=== PATIENT | male | born 1960 | race Caucasian/White ===

== ENCOUNTER → 2018-06-11 07:52 | Outpatient (CLI) | payer OTHER ==
[~2018-06-11] VITALS: Ht 165.1 cm; Wt 79.5 kg
--- NOTE | ~2018-06-11 | OP ---
PATIENT NAME: BELTRAN GOINS MEDICAL RECORD: [id number] :62 LOCATION:D.CAT ADMISSION DATE: SURGEON: BELTRAN REYES MD DATE OF OPERATION: 06/11/2018 DATE OF SERVICE: 06/11/2018 PROCEDURES: 1. PTCA stent of RCA. 2. PTCA stent of left circumflex. 3. Intravascular ultrasound RCA. 4. Intravascular ultrasound of left circumflex. 5. Left heart catheterization. 6. Selective coronary angiography. 7. Left ventriculogram. INDICATION: Angina and coronary artery disease. PROCEDURE IN DETAIL: After informed consent was obtained and after a detailed explanation of risks, benefits as well as alternative therapies, the patient elected to proceed with angiogram and angioplasty. The right femoral area was prepped and draped in normal sterile fashion. The right femoral artery was cannulated via modified Seldinger technique with placement of a 6-Panamanian sheath. All catheters exchanged through this sheath. FINDINGS: The left ventriculogram was performed in standard 30-degree PITTMAN view, reveals good cardiac wall motion throughout all segments. Overall ejection fraction estimated at 60%. SELECTIVE CORONARY ANGIOGRAPHY: 1. Left main is with no significant angiographic disease. 2. Left anterior descending has moderate irregularities, but no flow-limiting stenosis. 3. The left circumflex has greater than 80% stenosis in the mid vessel confirmed by intravascular ultrasound. 4. The right coronary has greater than 80% stenosis in the proximal vessel confirmed by intravascular ultrasound. PTCA STENT OF THE CIRCUMFLEX AND RCA: The circumflex was addressed with a 3.5 x 15 mm Integrity stent, the RCA with a 3.0 x 22 mm Integrity stent. Result was 0% residual stenosis. OVERALL IMPRESSION: Successful percutaneous transluminal coronary angioplasty stent of the left circumflex and right coronary artery, both going from greater than 80% initial stenosis to 0% residual. PROCEDURE: 1. Aortofemoral runoff. 2. Abdominal aortography. INDICATION: Leg pain compatible with claudication. PROCEDURE IN DETAIL: After informed consent was obtained and after detailed description of risks, benefits as well as alternative therapies, the patient elected to proceed with angiogram and aortofemoral runoff. The catheter was OPERATIVE REPORT [id number] BELTRAN GOINS advanced to the abdominal aorta pulled down for aortofemoral runoff. FINDINGS: The abdominal aorta has moderate irregularities, but no flow-limiting stenosis. No dissection or aneurysm formation. RIGHT LEG: A. Iliac: The common internal and external iliacs have mild irregularities, but no flow-limiting stenosis. B. Femoral system: The common superficial and deep femoral have mild irregularities, but no flow-limiting stenosis. C. Popliteal and infrapopliteal vessels have mild irregularities, but no flow-limiting stenosis. LEFT LEG: A. Iliac: The common internal and external iliacs have mild irregularities, but no flow-limiting stenosis. B. Femoral system: The common superficial and deep femoral have mild irregularities, but no flow-limiting stenosis. C. Popliteal and infrapopliteal vessels have mild irregularities, but no flow-limiting stenosis. OVERALL IMPRESSION: Wide patency of both legs with minimal peripheral vascular disease. Symptomatology is not secondary to arterial insufficiency. TRANSINT:[id number] Voice Confirmation ID: [id number] DOCUMENT ID: [id number] BELTRAN REYES MD at 0924 CC: [id number] DICTATION DATE: 06/11/18 1102 CAP INSPECTOR: 06/11/18 1129 DEP CLI 06/11/18 [facility] [address] [place] [address]
--- NOTE | ~2018-06-11 | HEMODYNAMI ---
PATIENT:BELTRAN GOINS MEDICAL RECORD: [id number] : 62 LOCATION:D.CAT ADMISSION DATE: 06/11/18 Generatedon:06/11/201810:59 Patient name: BELTRAN GOINS Patient #: [id number] SSN: D OB: 1960 Date of study: 06/11/2018 Page: Of Hemodynamic Procedure Report Patient Data Patient Demographics Procedure consent was obtained First Name: BELTRAN Gender: Male Last Name: BRISEIDA : 1960 Patient #: [id number] Age: 58 year(s) Race: Unknown Additional ID: [id number] Contact details [address]: [address] [place] [address] State: [place] City: [place] Zip code: [address] Past Medical History Allergies: No known allergies Admission Admission Data Admission Date: 06/11/2018 Admission Time: 7:52 Height (in.): 65.5 BSA: 1.87 (m2) Height (cm.): 166.37 BMI: 28.51 (kg/m2) Weight (lbs.): 174 Weight (kg.): 78.93 Procedure Procedure Types Cath Procedure Diagnostic Procedure C [facility] w/Coronaries FFR/IVUS Intra-Coronary IVUS Initial Intra-Coronary IVUS Additional PCI Procedure Coronary Stent Coronary Stent Initial x2 Peripheral Cath Diagnostic Procedure Industrial Relations Specialist Peripheral Procedures Wrpbr-Mmoshog-Lud-Off Procedure Description Procedure Date Procedure Date: 06/11/2018 Procedure Start Time: 10:24 Procedure End Time: 10:53 Procedure Staff Name Function Giacomo Jimenez RT Monitor Kenyatta Kumari RN Nurse Beltran Clinton MD Performing Physician Ana Laura Andres RT Scrub Trista Oconnell RN Nurse Procedure Data Cath Procedure Fluoroscopy Diagnostic fluoroscopy Total fluoroscopy Time: 4.7 time: 4.7 min min Diagnostic fluoroscopy Total fluoroscopy dose: 420 dose: 420 mGy mGy Contrast Material Contrast Material Type Amount (ml) Isovue 300 145 Entry Location Entry Primary Successful Side Size Upsize Upsize Entry Closure Succes sful Closure Location (Fr) 1 (Fr) 2 (Fr) Remarks Device Remarks Femoral Right 5 Fr 6 Fr Exoseal artery Short Estimated blood loss: 10 ml Diagnostic catheters Device Type Used For End Catheter Placement MULTIPACK Pigtail 5 Fr Procedure catheter MULTIPACK JL 4.0 5Fr Procedure catheter MULTIPACK 3DRC 5Fr Procedure catheter Procedure Complications No complications Procedure Medications Medication Administration Route Dosage Oxygen etCO2 Nasal cannula 2 l/min Lidocaine 2% added to field 20 Heparin Flush Bag added to field 2 bags (1000units/500ml NS) 0.9% NaCl I.V. 100 ml/hr Radial Cocktail I.A. 1 syringe (Verapomil 2mg/Nitro 400mcg/Heparin 1500units) Versed I.V. 2 mg Fentanyl I.V. 100 mcg Versed I.V. 2 mg Fentanyl I.V. 100 mcg Versed I.V. 2 mg Fentanyl I.V. 100 mcg Heparin Bolus I.V. 4000 units Integrilin (Bolus I.V. 7.3 ml 2mg/ml) Versed I.V. 2 mg Fentanyl I.V. 100 mcg Plavix P.O. 600 mg Hemodynamics Rest Heart Rate: 68 (bpm) Pressure Samples Time Site Value (mmHg) Purpose Heart Use Rate(bpm) 10:30 AO 87/66(74) Snapshot 67 Snapshots Pre Cath Intra NCS Post Cath Vital Signs Time Heart Resp SPO2 etCO2 NIBP (mmHg) Rhythm Pain Sedation Rate (ipm) (%) (mmHg) Status Level (bpm) 9:25:14 65 11 98 0 116/79(102) NSR 0 (11) 10(A) , No pain 9:29:22 66 19 99 35.3 128/80(94) NSR 0 (11) 10(A) , No pain 9:33:32 72 15 100 32.3 125/72(99) NSR 0 (11) 10(A) , No pain 9:37:42 70 19 100 33.1 116/80(106) NSR 0 (11) 10(A) , No pain 9:41:51 67 13 100 36.8 119/77(92) NSR 0 (11) 10(A) , No pain 9:46:01 76 19 98 23.3 121/79(93) NSR 0 (11) 10(A) , No pain 9:50:07 77 14 95 26.3 120/87(97) NSR 0 (11) 10(A) , No pain 9:54:21 62 15 95 33.1 100/63(82) NSR 0 (11) 10(A) , No pain 9:58:27 61 12 93 24 107/67(76) NSR 0 (11) 10(A) , No pain 10:02:33 74 15 94 42.1 99/70(79) NSR 0 (11) 10(A) , No pain 10:06:41 67 11 93 27 103/60(75) NSR 0 (11) 10(A) , No pain 10:10:44 80 17 94 41.4 114/74(85) NSR 0 (11) 10(A) , No pain 10:14:54 73 15 93 33.8 106/65(92) NSR 0 (11) 10(A) , No pain 10:19:02 73 16 93 27 101/68(86) NSR 0 (11) 10(A) , No pain 10:22:59 85 18 95 33.1 114/89(106) NSR 0 (11) 10(A) , No pain 10:27:16 60 15 95 38.3 112/48(67) NSR 0 (11) 10(A) , No pain 10:30:39 75 15 93 33.8 103/61(95) NSR 0 (11) 10(A) , No pain 10:34:46 71 12 93 10.5 106/62(92) NSR 0 (11) 9(A) , No pain 10:38:54 72 12 94 43.6 95/60(72) NSR 0 (11) 9(A) , No pain 10:43:00 86 13 93 0.7 92/65(87) NSR 0 (11) 9(A) , No pain 10:47:06 77 14 93 27 99/60(75) NSR 0 (11) 9(A) , No pain 10:51:09 93 16 95 28.6 100/71(81) NSR 0 (11) 10(A) , No pain Medications Time Medication Route Dose Verified Delivered Reason Not es Effectiveness by by 9:48:50 Oxygen etCO2 2 l/min Beltran You used for Nasal Mary Beth Kumari produce team lead cannula 9:54:28 Lidocaine 2% added 20ml Beltran Miller for local to vial Mary Beth Clinton MD anesthetic field 9:54:34 Heparin Flush added 2 bags Beltran Miller used for Bag to Mary Beth Clinton MD procedure (1000units/500ml field NS) 9:54:43 0.9% NaCl I.V. 100 Beltran Buffie Per physician ml/hr Mary Beth Kumari RN 9:54:54 Radial Cocktail I.A. 1 Beltran Miller for (Verapomil syringe Mary Beth Clinton MD vasodilation 2mg/Nitro 400mcg/Hepari 10:21:30 Versed I.V. 2 mg Beltran Buffie for sedation Mary Beht Kumari RN 10:21:36 Fentanyl I.V. 100 mcg Beltran Buffie for sedation Mary Beth Kumari RN 10:24:34 Versed I.V. 2 mg Beltran Buffie for sedation Mary Beth Kumari RN 10:24:38 Fentanyl I.V. 100 mcg Beltran Buffie for sedation Mary Beth Kumari RN 10:27:36 Versed I.V. 2 mg Beltran Buffie for sedation Mary Beth Kumari RN 10:27:40 Fentanyl I.V. 100 mcg Beltran Buffie for sedation Mary Beth Kumari RN 10:36:21 Heparin Bolus I.V. 4000 Beltran Buffie for delfina ified units Mary Beth Kumari RN anticoagulation with dr clinton 10:38:05 Integrilin I.V. 7.3 ml Beltran Buffie for Was felton (Bolus 2mg/ml) Mary Beth Kumari RN antiplatelet 2.7 ml therapy of vial 10:40:33 Versed I.V. 2 mg Beltran Buffie for sedation Mary Beth Kumari RN 10:40:38 Fentanyl I.V. 100 mcg Beltran Buffie for sedation Mary Beth Kumari RN 10:50:04 Plavix P.O. 600 mg Beltran Buffie for Mary Beth Kumari RN antiplatelet therapy Procedure Log Time Note 9:00:07 Ana Laura Andres RT(R) sent for patient. Start room use. 9:05:49 Signed procedure consent form obtained from patient. 9:05:54 Time tracking: Regular hours (M-F 7:00 - 5:00) 9:05:57 Plan of Care:Hemodynamics will remain stable., Cardiac rhythm will remain stable., Comfort level will be maintained., Respiratory function will remain adequate., Patient/ family verbilizes understanding of procedure., Procedure tolerated without complication., Recovers from procedure without complications.. 9:06:09 H&P Date Dictated: 05/19/2018 Within 30 days and on chart., H&P Addendum completed by physician on day of procedure. (MUST COMPLETE FOR ALL OUTPATIENTS). 9:06:16 Patient Height : 65.5 inches 9:06:20 Patient Weight : 174 lbs 9:16:11 Patient received from Pre/Post Procedure Room to CCL 3 Alert and oriented. Tansferred to table in Supine position. 9:16:12 Warm blankets applied, and asim hugger turned on for patient comfort. 9:16:13 ECG and BP/O2 sat monitors applied to patient. 9:16:13 Correct patient and procedure confirmed by team. 9:24:12 Vital chart was started 9:24:14 Baseline sample Acquired. 9:24:18 Rhythm: sinus rhythm 9:24:20 Full Disclosure recording started 9:24:21 Pre-op teaching completed and patient verbalized understanding. 9:24:21 Pre-procedure instructions explained to patient. 9:24:22 Family in patients room. 9:24:24 Patient NPO since Midnight. 9:24:28 Patient allergic to No known allergies 9:24:31 Is patient on blood thinner?No 9:35:11 Patient diabetic? No. 9:35:15 Previous problem with sedation/anesthesia? No ? 9:35:16 Snore? Yes 9:35:17 Sleep apnea? No 9:35:19 Deviated septum? No 9:35:20 Sticks out tongue? Yes 9:35:20 Opens mouth fully? Yes 9:35:23 Airway obstruction? No ? 9:35:28 Dentures? Yes IN 9:35:31 Pre procedure: right dorsailis pedis pulse 1+ Palpable, but thready & weak; easily obliterated 9:35:33 Modified Andi's test Ulnar < 7 seconds 9:35:35 Patient pain scale 0/10 ?. 9:35:44 IV patent on arrival in left forearm with 0.9% NaCl at KVO. 9:35:46 Lab results completed and on chart. 9:35:50 Right Radial & Right Groin area was prepped with chlora-prep and draped in sterile fashion 9:35:51 Alarms reviewed by R. N. 9:35:52 Sharps counted by scrub and verified by R.N. 9:41:16 Use device set Radial Dx or PCI 9:41:18 Tegaderm 4 x 4 (1626W) opened to sterile field. 9:41:19 ACIST Manifold (10116) opened to sterile field. 9:41:20 ACIST Hand Control (96970) opened to sterile field. 9:41:21 Bag Decanter (2002S) opened to sterile field. 9:41:21 Medline Cath Pack ([id number]) opened to sterile field. 9:41:21 ACIST Syringe (47699) opened to sterile field. 9:41:23 DIAGNOSTIC WIRE .035 260cm J wire (264614) opened to sterile field. 9:41:24 MBrace Wrist Support ([id number]) opened to sterile field. 9:48:50 Oxygen 2 l/min etCO2 Nasal cannula was administered by Kenyatta Kumari RN; used for procedure; 9:49:01 Zero performed for pressure channel P1 9:54:28 Lidocaine 2% 20ml vial added to field was administered by Beltran Clinton MD; for local anesthetic; 9:54:34 Heparin Flush Bag (1000units/500ml NS) 2 bags added to field was administered by Beltran Clinton MD; used for procedure; 9:54:43 0.9% NaCl 100 ml/hr I.V. was administered by Kenyatta Kumari RN; Per physician; 9:54:54 Radial Cocktail (Verapomil 2mg/Nitro 400mcg/Heparin 1500units) 1 syringe I.A. was administered by Beltran Clinton MD; for vasodilation; 10:15:30 Case delayed due to physician working in [facility]. 10:20:08 --------ALL STOP TIME OUT------ 10:20:09 Final Timeout: patient, procedure, and site verified with staff and physician. All members of the team are in agreement. 10:20:11 Right Radial & Right Groin site verified by team. 10:20:14 Physical assessment completed. ASA score P 2 - A patient with mild systemic disease as per Beltran Clinton MD. 10:20:19 Sedation plan: IV Moderate Sedation Medication:Versed, Fentanyl 10:21:30 Versed 2 mg I.V. was administered by Kenyatta Kumari RN; for sedation; 10::36 Fentanyl 100 mcg I.V. was administered by Kenyatta Kumari RN; for sedation; 10:24:34 Versed 2 mg I.V. was administered by Kenyatta uKmari RN; for sedation; 10::38 Fentanyl 100 mcg I.V. was administered by Kenyatta Kumari RN; for sedation; 10:24:54 Procedure started. 10::58 Local anesthetic to right femoral artery with Lidocaine 2% by Beltran Clinton MD.INITIAL ACCESS ONLY 10:26:25 A 5 Fr sheath was inserted into the Right Femoral artery 10:26:40 SHEATH Prelude 5Fr 0.035 (OHM-8S-11-035) opened to sterile field. 10:26:44 Use device set Multipack Set 10:26:47 DIAGNOSTIC Multipack 5Fr catheter set ([id number]) opened to sterile field. 10:27:01 A MULTIPACK Pigtail 5 Fr catheter was advanced over the wire and used for Procedure. 10:27:24 Abdominal Aortagram was performed. 10:27:26 Left leg runoff performed. 10:27:27 Right leg runoff performed. 10::30 Injector settings: Ml/sec: 10, Volume: 20, 10::36 Versed 2 mg I.V. was administered by Kenyatta Kumari RN; for sedation; 10::40 Fentanyl 100 mcg I.V. was administered by Kenyatta Kumari RN; for sedation; 10:27:42 Procedure type changed to Cath procedure, Diagnostic procedure, LHC, LHC w/Coronaries, FFR/IVUS, Intra-Coronary IVUS Initial, Intra-Coronary IVUS Additional, PCI procedure, Coronary Stent, Coronary Stent Initial x2, Peripheral Cath Diagnostic Procedure, Industrial Relations Specialist Peripheral Procedures, Ccbmu-Nlkcpxs-Trx-Off 10:29:37 LV angiography performed. 10::38 LV gram done using PITTMAN 10::45 EF : 55 % 10:30:25 Catheter removed. 10:30:31 A MULTIPACK JL 4.0 5Fr catheter was advanced over the wire and used for Procedure. 10:30:52 GUIDE 6FR XBLAD 3.5 catheter ([id number]) opened to sterile field. 10:31:12 LCA angiography performed. 10:31:15 Catheter removed. 10:31:20 A MULTIPACK 3DRC 5Fr catheter was advanced over the wire and used for Procedure. 10:33:28 RCA angiography performed. 10:33:29 Catheter removed. 10:33:33 Use device set MARY BETH PCI 10:34:08 INFLATOR Merit Bok (HD3294) opened to sterile field. 10:34:11 CHOICE PT Extra Support 182cm wire ([id number]) opened to sterile field. 10:34:13 SHEATH Prelude 6Fr 0.035 (CHK-6J-36-035) opened to sterile field. 10:34:14 Coalgate Hughes Eagleye IVUS Catheter (38781P) opened to sterile field. 10:34:23 Sheath upsized to a 6 Fr Short. 10:34:32 6 Fr XBLAD 3.5 guide catheter was inserted over the wire 10:34:36 CPTXS wire advanced. 10:34:51 Wire advanced across lesion. 10:35:01 IVUS catheter advanced over wire. 10:35:27 IVUS pass to Circ lesion performed. 10:35:31 IVUS catheter removed over wire. 10:36:21 Heparin Bolus 4000 units I.V. was administered by Kenyatta Kumari RN; for anticoagulation; verified with dr clinton 10:37:35 Inflate balloon Inflation number: 1 A INTEGRITY RX 3.5 x 15 stent ([id number]) was prepped and advanced across the Mid CX, then inflated to 15 REMBERTO for 0:10 (min:sec). 10:38:05 Integrilin (Bolus 2mg/ml) 7.3 ml I.V. was administered by Kenyatta Kumari RN; for antiplatelet therapy; Wasted 2.7 ml of vial 10:38:17 GUIDE 6FR HS I catheter (LA6HSI) opened to sterile field. 10:38:27 Stent catheter was removed intact over wire. 10:38:28 Wire removed. 10:38:29 Guide catheter removed. 10:38:35 6 Fr HS 1 guide catheter was inserted over the wire 10:40:27 Guide Catheter removed. pressure damping. 10:40:33 Versed 2 mg I.V. was administered by Kenyatta Kumari RN; for sedation; 10:40:38 Fentanyl 100 mcg I.V. was administered by Kenyatta Kumari RN; for sedation; 10:40:42 GUIDE 6FR HS I SH catheter (FU1ICRLY) opened to sterile field. 10:41:14 6 Fr HS 1 SH guide catheter was inserted over the wire 10:41:20 CPTXS wire advanced. 10:41:25 Wire advanced across lesion. 10:41:28 IVUS catheter advanced over wire. 10:43:36 IVUS pass to RCA lesion performed. 10:43:37 IVUS catheter removed over wire. 10:44:18 Place stent Inflation Number: 1 A INTEGRITY RX 3.0 x 22 stent ([id number]) was prepped and advanced across the Prox RCA. The stent was deployed at 15 REMBERTO for 0:10 (min:sec). 10:44:27 EXOSEAL 6Fr (EX600) opened to sterile field. 10:44:32 Stent catheter was removed intact over wire. 10:44:33 Wire removed. 10:44:34 Guide catheter removed. 10:44:42 Sheath removed intact; hemostasis achieved with Exoseal to the Right Femoral artery. 10:46:23 Procedure ended.(Physican Out) 10:50:04 Plavix 600 mg P.O. was administered by Kenyatta Kumari RN; for antiplatelet therapy; 10:50:58 Fluoroscopy time 04.70 minutes. 10:51:06 Fluoroscopy dose: 420 mGy 10:51:06 Flurop Dose total: 420 10:51:12 Contrast amount:Isovue 300 145ml. 10:51:13 Sharps counted by scrub and verified by R.N. 10:51:17 Insertion/operative site no bleeding no hematoma. 10:51:21 Post-op/insertion site Right Femoral artery dressed using a 4 x 4 and Tegaderm. 10:51:22 Post Procedure Pulses reassessed and unchanged 10:51:25 Post-procedure physical assessment completed. ASA score P 2 - A patient with mild systemic disease as per Beltran Clinton MD. 10:51:27 Post procedure rhythm: unchanged. 10:51:30 Estimated blood loss: 10 ml 10:51:37 Post procedure instruction explained to patient.Patient verbalizes understanding. 10:51:38 Patient needs reinforcement of post procedure teaching. 10:52:07 Procedure and supply charges have been captured, reviewed, submitted and are correct. 10:52:10 Procedure Complication : No complications 10:52:56 Vital chart was stopped 10:52:56 See physician's report for complete and final results. 10:53:09 Report given to Pre/Post Procedure Room. 10:53:12 Patient transfered to Pre/Post Procedure Room with Stretcher. 10:53:14 Procedure ended. 10:53:14 Full Disclosure recording stopped 10:54:07 End room use (Document Last) Intervention Summary Intervention Notes Time ActionType Lesion and Equipment Action# Pressure Duration Attributes Used 10:37:35 Inflate Mid CX INTEGRITY RX 1 15 00:10 balloon 3.5 x 15 stent ([id number]) 10:44:18 Place stent Prox RCA INTEGRITY RX 1 15 00:10 3.0 x 22 stent ([id number]) Device Usage Item Name Manufacture Quantity Catalog Number Hospital Part Current Minimal Lot# / Charge Number Stock Stock Serial# Code Tegaderm 4 x 4 3M 1 1626W [id number] 140951 574533 5 (1626W) ACIST Manifold Acist 1 70549 461944 499057 887830 5 (14622) Medical Systems Inc ACIST Hand Acist 1 18133 927742 354045 413088 5 Control (12627) [employer] Inc ACIST Syringe Acist 1 68292 821587 389188 818597 20 (70866) Medical Systems Inc Medline Cath Cardinal 1 [id number] 839614 00042 861310 5 Pack Health ([id number]) Bag Decanter Microtek 1 2001S 671773 33958 981542 5 (2001S) Medical Inc. DIAGNOSTIC WIRE St Colin 1 041042 457948 861255 893994 30 .035 260cm J wire (107202) MBrace Wrist Advanced 1 140-0250-00 819380 06166 161901 5 Support Vascular ([id number]) Dynamics SHEATH Prelude Merit 1 FRW-6T-58-035 661115 205434 076746 5 5Fr 0.035 Medical (MWG-8J-71-035) DIAGNOSTIC Cardinal 1 DI2832 662331 23374 201422 30 Multipack 5Fr Health catheter set (CV1384) MULTIPACK Cardinal 1 308679 5 Pigtail 5 Fr Health catheter MULTIPACK JL Cardinal 1 159187 5 4.0 5Fr Health catheter MULTIPACK 3DRC Cardinal 1 311347 5 5Fr catheter Health INFLATOR Merit Merit 1 AC0163 383317 084853 614581 15 BloomNation (ZJ7680) CHOICE PT Extra Crowell 1 [id number] 973834 017791 014154 5 Support 182cm Scientific wire ([id number]) SHEATH Prelude Merit 1 SEK-8Z-59-35 705893 7990805 737021 5 6Fr 0.035 Medical (FZF-7U-40-035) Coalgate Coalgate 1 16024O 420544 089347 587480 8 Hughes Eagleye IVUS Catheter (79923D) INTEGRITY RX Medtronic 1 [id number] 973029 742707 436638 5 [id number] 3.5 x 15 stent ([id number]) GUIDE 6FR HS I Medtronic 1 LA6HSI 933714 78217 428873 1 catheter (LA6HSI) GUIDE 6FR HS I Medtronic 1 [id number] 699427 54265 349288 1 SH catheter (SA9CQCLE) INTEGRITY RX Medtronic 1 [id number] 263435 000568 349715 5 [id number] 3.0 x 22 stent ([id number]) EXOSEAL 6Fr Cardinal 1 EX600 210008 547315 258676 10 (EX600) Health GUIDE 6FR XBLAD Cardinal 1 [id number] 850350 517681 857646 10 3.5 catheter Health (98025374) Signature Audit [place] Stage Time Signature Unsigned Intra-Procedure 06/11/2018 Giacomo Jimenez RT(R) 10:55:03 AM RT(R) 06/11/2018 10:58:36 AM Intra-Procedure 06/11/2018 Giacomo Jimenez 10:59:44 AM RT(R) Signatures Monitor : Giacomo Jimenez RT Signature : Date : Time : [facility] [address] [facility] [place] [address]
[~2018-06-11 07:52] MED LIST: LISINOPRIL10 MG PO; OMEPRAZOLE20 M1 PO; PLAVIX75 MG PO; PRAVACHOL40 MG PO; TOPROL XL25 MG PO; ZETIA10 MG PO
[2018-06-11 08:29] VITALS: BP 130/74; Ht 165.1 cm; Wt 79.5 kg
[2018-06-11 08:40] LABS: BASOPHILS 0.3 % (0-2); EOSINOPHILS 1.8 % (0-7); HEMATOCRIT 48.5 % (42.0-54.0); IMMATURE GRANULOCYTES 0.2 % (0-5); LYMPHOCYTES 26.5 % (15-50); MCH 32.6 pg (26.0-34.0); MCHC 35.1 g/dL (31.0-37.0); MCV 92.9 fL (80.0-100.0); MEAN PLATELET VOLUME 10.4 fL (7.4-10.4); NEUTROPHILS 60.2 % (40-80); PLATELET COUNT 233 10x3/uL (130-400); RBC 5.22 10x6/uL (4.20-6.10); RDW 13.2 % (11.5-14.5); WBC 6.5 10x3/uL (4.8-10.8)
[2018-06-11 08:46] LABS: CALCIUM 8.9 mg/dL (8.5-10.1); CARBON DIOXIDE 26.6 mmol/L (21.0-32.0); CHLORIDE - SERUM 104 mmol/L (98-107); CREATININE - SERUM 0.8 mg/dL (0.6-1.3); GLUCOSE 107 mg/dL (74-106); UREA NITROGEN 13 mg/dL (7-18); eGFR NON AFRICAN AMERICAN > 90 mL/min (90-120)
[2018-06-11 08:53] LABS: CALC OSMOLALITY 277 mosm/kg (275-300); POTASSIUM - SERUM 4.2 mmol/L (3.5-5.1); SODIUM 139 mmol/L (136-145)
== END | disposition home or self-care (01) ==
LOC: D.CATH 07:52
PROVIDERS: Internal Medicine Interventional Cardiology
DX: I25.110 Atherosclerotic heart disease of native coronary artery with unstable angina pectoris (principal); R94.39 Abnormal result of other cardiovascular function study

== ENCOUNTER 2018-06-13 08:49 | Emergency (ER) | payer OTHER ==
[~2018-06-13] VITALS: Ht 165.1 cm; Wt 79.5 kg
[2018-06-13 08:53] VITALS: Ht 165.1 cm; Wt 79.5 kg
[2018-06-13 09:09] LABS: BASOPHILS 0.2 % (0-2); EOSINOPHILS 1.5 % (0-7); HEMATOCRIT 48.7 % (42.0-54.0); HEMOGLOBIN 17.1 g/dL (13.5-17.5); IMMATURE GRANULOCYTES 0.1 % (0-5); LYMPHOCYTES 21.5 % (15-50); MCH 32.7 pg (26.0-34.0); MCHC 35.1 g/dL (31.0-37.0); MCV 93.1 fL (80.0-100.0); MEAN PLATELET VOLUME 10.2 fL (7.4-10.4); MONOCYTES 9.3 % (2-11); NEUTROPHILS 67.4 % (40-80); PLATELET COUNT 220 10x3/uL (130-400); RBC 5.23 10x6/uL (4.20-6.10); RDW 13.1 % (11.5-14.5); WBC 8.9 10x3/uL (4.8-10.8)
[2018-06-13 09:20] LABS: ALKALINE PHOSPHATASE 71 U/L (46-116); ALT (SGPT) 36 U/L (10-68); BILIRUBIN - TOTAL 0.65 mg/dL (0.2-1.3); CALC OSMOLALITY 278 mosm/kg (275-300); CALCIUM 9.2 mg/dL (8.5-10.1); CARBON DIOXIDE 28.3 mmol/L (21.0-32.0); CHLORIDE - SERUM 101 mmol/L (98-107); CREATININE - SERUM 0.9 mg/dL (0.6-1.3); GLUCOSE 122 mg/dL (74-106); POTASSIUM - SERUM 3.9 mmol/L (3.5-5.1); PROTEIN - SERUM 8.3 g/dL (6.4-8.2); SODIUM 139 mmol/L (136-145); UREA NITROGEN 12 mg/dL (7-18); eGFR NON AFRICAN AMERICAN > 90 mL/min (90-120)
[2018-06-13 09:25] LABS: APTT 31.3 SECONDS (22.8-39.4); INR 0.96 (0.85-1.17); PROTIME 12.4 SECONDS (11.6-15.0)
[2018-06-13 09:39] LABS: CKMB 1.4 U/L (0.0-3.6); CREATINE KINASE 89 UL (21-232); MAGNESIUM - SERUM 2.3 mg/dL (1.8-2.4)
[2018-06-13 09:45] LABS: TROPONIN-I < 0.017 ng/mL (0.000-0.060)
[2018-06-13 10:42] VITALS: BP 115/69
== END 2018-06-13 10:43 | disposition home or self-care (01) ==
LOC: D.ER 08:49
PROVIDERS: Emergency Medicine
DX: R07.9 Chest pain, unspecified (principal); I25.10 Atherosclerotic heart disease of native coronary artery without angina pectoris; I10 Essential (primary) hypertension; K21.9 Gastro-esophageal reflux disease without esophagitis; Z85.828 Personal history of other malignant neoplasm of skin; Z79.01 Long term (current) use of anticoagulants

== ENCOUNTER 2018-12-15 08:14 | Outpatient (CLI) | payer OTHER ==
[~2018-12-15] VITALS: Ht 165.1 cm; Wt 80.0 kg
--- NOTE | ~2018-12-15 | HEMODYNAMI ---
PATIENT:BELTRAN GOINS MEDICAL RECORD: [id number] : 62 [id number] ADMISSION DATE: 12/15/18 Generatedon:12/15/201810:54 Patient name: BELTRAN GOINS Patient #: [id number] SSN: D OB: 1960 Date of study: 12/15/2018 Page: Of Hemodynamic Procedure Report Patient Data Patient Demographics Procedure consent was obtained First Name: BELTRAN Gender: Male Last Name: BRISEIDA : 1960 Patient #: [id number] Age: 58 year(s) Race: Unknown Additional ID: [id number] Contact details [address]: [address] [place] [address] State: [place] City: [place] Zip code: [address] Past Medical History Allergies: No known allergies Admission Admission Data Admission Date: 12/15/2018 Admission Time: 8:14 Admit Source: Other Weight (lbs.): 176.37 Weight (kg.): 80 Lab Results Lab Result Date: 12/15/2018 Lab Result Time: 0:00 Biochemistry Name Units Result Min Max BUN mg/dl 19 --(----)*- 7 18 Creatinine mg/dl 0.8 --(-*--)-- 0.6 1.3 CBC Name Units Result Min Max Hemoglobin g/dl 15.4 --(-*--)-- 13.5 17.5 Procedure Procedure Types Cath Procedure Diagnostic Procedure [facility] w/Coronaries FFR/IVUS Intra-Coronary IVUS Initial Sedation Charges Moderate Sedation up to 15 minutes PCI Procedure Coronary Stent Coronary Stent Initial Procedure Description Procedure Date Procedure Date: 12/15/2018 Procedure Start Time: 10:30 Procedure End Time: 10:48 Procedure Staff Name Function Beltran Clinton MD Performing Physician Bekah Echols RT Monitor Kenyatta Kumari RN Nurse Giacomo Jimenez RT Scrub Procedure Data Cath Procedure Fluoroscopy Diagnostic fluoroscopy Total fluoroscopy Time: 3.2 time: 3.2 min min Diagnostic fluoroscopy Total fluoroscopy dose: 245 dose: 245 mGy mGy Contrast Material Contrast Material Type Amount (ml) Isovue 300 77 Entry Location Entry Primary Successful Side Size Upsize Upsize Entry Closure Mayen ccessful Closure Location (Fr) 1 (Fr) 2 (Fr) Remarks Device Remarks Radial Right 6 Fr Mechanical artery Short Compression Estimated blood loss: 5 ml Diagnostic catheters Device Type Used For End Catheter Placement DIAGNOSTIC Marcy 110cm 5 Multi-vessel Fr catheter ([id number]) Angiography Procedure Complications No complications Procedure Medications Medication Administration Route Dosage Oxygen etCO2 Nasal cannula 2 l/min Lidocaine 2% added to field 20 Heparin Flush Bag added to field 2 bags (1000units/500ml NS) 0.9% NaCl I.V. 100 ml/hr Versed I.V. 2 mg Fentanyl I.V. 100 mcg Versed I.V. 2 mg Versed I.V. 2 mg Fentanyl I.V. 100 mcg Radial Cocktail I.A. 1 syringe (Verapomil 2mg/Nitro 400mcg/Heparin 1500units) Versed I.V. 2 mg Fentanyl I.V. 100 mcg Heparin Bolus 4000 units Integrilin (Bolus I.V. 7.3 ml 2mg/ml) Hemodynamics Rest HGB: 15.4 (g/dl) Heart Rate: 67 (bpm) Pressure Samples Time Site Value (mmHg) Purpose Heart Use Rate(bpm) 10:37 LV 56/30,13 Snapshot 156 Snapshots Pre Cath Intra NCS Post Cath Vital Signs Time Heart Resp SPO2 etCO2 NIBP (mmHg) Rhythm Pain Sedation Rate (ipm) (%) (mmHg) Status Level (bpm) 10:21:25 63 19 99 0 127/87(103) NSR 0 (11) 10(A) , No pain 10:25:31 62 18 99 21.7 134/83(98) NSR 0 (11) 10(A) , No pain 10:29:36 69 26 100 35.1 123/87(98) NSR 0 (11) 10(A) , No pain 10:33:43 67 17 99 36.6 122/82(93) NSR 0 (11) 10(A) , No pain 10:37:52 68 16 97 36.6 111/74(99) NSR 0 (11) 10(A) , No pain 10:41:58 70 16 95 38.9 110/72(100) NSR 0 (11) 10(A) , No pain 10:46:06 74 17 96 35.1 109/62(76) NSR 0 (11) 10(A) , No pain Medications Time Medication Route Dose Verified Delivered Reason Notes Effectiveness by by 10:23:26 Lidocaine 2% added 20ml Beltran Miller for local to vial Mary Beth Clinton MD anesthetic field 10:23:26 Oxygen etCO2 2 l/min Beltran You used for Nasal Mary Beth Kumari RN procedure cannula 10:23:35 Heparin Flush added 2 bags Beltran Miller used for Bag to Mary Beth Clinton MD procedure (1000units/500ml field NS) 10:23:51 0.9% NaCl I.V. 100 Beltran You used for ml/hr Mary Beth Kumari RN procedure 10:27:53 Versed I.V. 2 mg Beltran You for sedation Mary Beth Kumari RN 10:27:58 Fentanyl I.V. 100 mcg Beltran You for sedation Mary Beth Kumari RN 10:32:28 Versed I.V. 2 mg Beltran You for sedation Mary Beth Kumari RN 10:34:36 Fentanyl I.V. 100 mcg Beltran You for sedation Mary Beth Kumari RN 10:35:33 Versed I.V. 2 mg Beltran You for sedation Mary Beth Kumari RN 10:36:05 Radial Cocktail I.A. 1 Beltran Miller for (Verapomil syringe Mary Beth Clinton MD vasodilation 2mg/Nitro 400mcg/Heparin 1500units) 10:41:38 Versed I.V. 2 mg Beltran Miller for sedation Mary Beth Clinton MD 10:41:46 Fentanyl I.V. 100 mcg Beltran Miller for sedation Mary Beth Clinton MD 10:44:18 Heparin Bolus 4000 Beltran You verifi ed units Mary Beth Kumari RN with dr clinton 10:47:36 Integrilin I.V. 7.3 ml Beltran You for wasted (Bolus 2mg/ml) Mary Beth Kumari RN antiplatelet 2.7 ml therapy of vial. Procedure Log Time Note 9:58:37 Patient Weight : 176.37 lbs 9:59:28 Lab Result : Hemoglobin 15.4 g/dl 9:59:28 Lab Result : Creatinine 0.8 mg/dl 9:59:28 Lab Result : BUN 19 mg/dl 10:00:25 Kenyatta Kumari RN sent for patient. Start room use. 10:00:27 Time tracking: Regular hours (M-F 7:00 - 5:00) 10:00:32 Plan of Care:Hemodynamics will remain stable., Cardiac rhythm will remain stable., Comfort level will be maintained., Respiratory function will remain adequate., Patient/ family verbilizes understanding of procedure., Procedure tolerated without complication., Recovers from procedure without complications.. 10:00:57 H&P Date Dictated: 12/15/2018 Within 30 days and on chart.. 10:13:28 Patient received from ED to CCL 3 Alert and oriented. Tansferred to table in Supine position. 10:13:29 Warm blankets applied, and asim hugger turned on for patient comfort. 10:13:30 Correct patient and procedure confirmed by team. 10:13:31 ECG and BP/O2 sat monitors applied to patient. 10:13:33 Signed procedure consent form obtained from patient. 10:20:15 Vital chart was started 10:20:18 Baseline sample Acquired. 10:20:21 Rhythm: sinus rhythm 10:20:22 Full Disclosure recording started 10:20:24 Pre-procedure instructions explained to patient. 10:20:24 Pre-op teaching completed and patient verbalized understanding. 10:20:25 Family in waiting room. 10:20:26 Patient NPO since Midnight. 10:20:28 Is the patient allergic to Iodine/contrast media? No. 10:20:29 Was the patient premedicated? No 10:20:31 Is patient on blood thinner?Yes 10:20:34 ACC The patient was administered the following blood thiners within the last 24 hours: ACCPlavix 10:20:39 Patient diabetic? No. 10:20:41 Previous problem with sedation/anesthesia? No ? 10:20:43 Snore? Yes 10:20:44 Sleep apnea? No 10:20:45 Deviated septum? No 10:20:45 Opens mouth fully? Yes 10:20:46 Sticks out tongue? Yes 10:20:49 Airway obstruction? No ? 10:20:54 Dentures? Yes IN TIGHT 10:20:58 Pre procedure: right dorsailis pedis pulse 2+ Normal; easily identifiable; not easily obliterated 10:21:01 Pre procedure: left dorsailis pedis pulse 2+ Normal; easily identifiable; not easily obliterated 10:21:03 Patient pain scale 0/10 ?. 10:21:10 IV patent on arrival in left forearm with 0.9% NaCl at [facility]. 10:21:12 Lab results completed and on chart. 10:21:15 Right Radial & Right Groin area was prepped with chlora-prep and draped in sterile fashion 10::16 Alarms reviewed by R. N. 10::17 Sharps counted by scrub and verified by R.N. 10:: Lidocaine 2% 20ml vial added to field was administered by Beltran Clinton MD; for local anesthetic; :: Oxygen 2 l/min etCO2 Nasal cannula was administered by Kenyatta Kumari RN; used for procedure; ::35 Heparin Flush Bag (1000units/500ml NS) 2 bags added to field was administered by Beltran Clinton MD; used for procedure; ::51 0.9% NaCl 100 ml/hr I.V. was administered by Kenyatta Kumari RN; used for procedure; ::51 Admit Source: Other 10::02 Physician arrived 10::02 --------ALL STOP TIME OUT------ 10::03 Final Timeout: patient, procedure, and site verified with staff and physician. All members of the team are in agreement. 10:26:04 Right Radial & Right Groin site verified by team. 10::08 Maximum allowable Isovue 300 dose 300ml. Physician notified. (300ml for normal creatinines. For patients with creatinine of 1.7 or higher multiply weight(kg) x 5 divided by creatinine.) 10:26:12 Fire Safety Assessment: A--An alcohol-based skin anteseptic being used preoperatively., C--Open oxygen or nitrous oxide is being used., D--An ESU, laser, or fiber-optic light is being used. 10:26:15 Physical assessment completed. ASA score P 2 - A patient with mild systemic disease as per Beltran Clinton MD. 10::18 Sedation plan: IV Moderate Sedation Medication:Versed, Fentanyl 10::37 Use device set Radial Dx or PCI 10:26:38 ACIST Syringe (07614) opened to sterile field. 10:26:38 Medline Cath Pack ([id number]) opened to sterile field. 10:26:39 Bag Decanter (2002) opened to sterile field. 10:26:39 DIAGNOSTIC WIRE .035 260cm J wire (465400) opened to sterile field. 10:26:39 ACIST Hand Control (89188) opened to sterile field. 10:26:40 ACIST Manifold (69628) opened to sterile field. 10:26:40 Tegaderm 4 x 4 (1626W) opened to sterile field. 10:26:41 MBrace Wrist Support ([id number]) opened to sterile field. 10:26:44 SHEATH 6FR Slender (64-8879) opened to sterile field. 10:27:53 Versed 2 mg I.V. was administered by Kenyatta Kumari RN; for sedation; 10:27:58 Fentanyl 100 mcg I.V. was administered by Kenyatta Kumari RN; for sedation; 10:30:44 Procedure started. 10:30:51 Local anesthetic to right radial artery with Lidocaine 2% by Beltran Clinton MD.INITIAL ACCESS ONLY 10:32:28 Versed 2 mg I.V. was administered by Kenyatta Kumari RN; for sedation; 10:34:36 Fentanyl 100 mcg I.V. was administered by Kenyatta Kumari RN; for sedation; 10:35:20 A 6 Fr Short sheath was inserted into the Right Radial artery 10:35:33 Versed 2 mg I.V. was administered by Kenyatta Kumari RN; for sedation; 10:35:37 A DIAGNOSTIC Marcy 110cm 5 Fr catheter ([id number]) was advanced over the wire and used for Multi-vessel Angiography. 10:36:05 Radial Cocktail (Verapomil 2mg/Nitro 400mcg/Heparin 1500units) 1 syringe I.A. was administered by Beltran Clinton MD; for vasodilation; 10:37:15 LV hemodynamics recorded. 10:37:16 LV gram done using PITTMAN 10:37:19 Injector settings: Ml/sec: 5, Volume: 15, 10:37:31 EF : 60 % 10:37:41 RCA angiography performed. 10:37:44 Injector settings: Ml/sec: 3, Volume: 6, 10:38:07 LCA angiography performed. 10:38:10 Injector settings: Ml/sec: 3, Volume: 6, 10:39:43 Catheter removed. 10:39:45 Proceeding to intervention. 10:41:38 Versed 2 mg I.V. was administered by Beltran Clinton MD; for sedation; 10:41:46 Fentanyl 100 mcg I.V. was administered by Beltran Clinton MD; for sedation; 10:41:59 [place] IVUS Catheter (10699H) opened to sterile field. 10:42:00 CHOICE PT Extra Support 182cm wire ([id number]) opened to sterile field. 10:42:01 INFLATOR Merit BasixCompak (VD0889) opened to sterile field. 10:42:13 GUIDE 5FR EBU 3.5 catheter ([id number]) opened to sterile field. 10:42:23 6 Fr EBU 3.5 guide catheter was inserted over the wire 10:42:27 CHOICE PT wire advanced. 10:42:29 Wire advanced across lesion. 10:42:35 IVUS catheter advanced over wire. 10:44:13 IVUS pass to Circ lesion performed. 10:44:18 Heparin Bolus 4000 units was administered by Kenyatta Kumari RN; ; verified with dr clinton 10:44:59 IVUS catheter removed over wire. 10:45:30 Place stent Inflation Number: 1 A RODERICK RX 3.0 x 15 stent ([id number]) was prepped and advanced across the Mid CX. The stent was deployed at 19 REMBERTO for 0:10 (min:sec). 10:46:23 Stent catheter was removed intact over wire. 10:46:24 Wire removed. 10:46:24 Guide catheter removed. 10:46:27 TR BAND Standard ([id number]) opened to sterile field. 10:46:35 Sheath removed intact; hemostasis achieved with Mechanical Compression to the Right Radial artery. 10:46:37 Procedure ended.(Physican Out) 10:46:54 Fluoroscopy time 03.20 minutes. 10:47:25 Fluoroscopy dose: 245 mGy 10:47:25 Flurop Dose total: 245 10:47:29 Contrast amount:Isovue 300 77ml. 10:47:30 Sharps counted by scrub and verified by R.N. 10:47:34 TR band inflated with 10cc of air. 10:47:36 Integrilin (Bolus 2mg/ml) 7.3 ml I.V. was administered by Kenyatta Kumari RN; for antiplatelet therapy; wasted 2.7 ml of vial. 10:47:36 Insertion/operative site no bleeding no hematoma. 10:47:41 Post right radial artery:stable 10:47:42 Post Procedure Pulses reassessed and unchanged 10:47:47 Post procedure rhythm: unchanged. 10:47:50 Estimated blood loss: 5 ml 10:47:52 Post procedure instruction explained to patient.Patient verbalizes understanding. 10:47:52 Patient needs reinforcement of post procedure teaching. 10:48:10 Procedure type changed to Cath procedure, Diagnostic procedure, LHC, LHC w/Coronaries, FFR/IVUS, Intra-Coronary IVUS Initial, Sedation Charges, Moderate Sedation up to 15 minutes, PCI procedure, Coronary Stent, Coronary Stent Initial 10:48:11 Procedure and supply charges have been captured, reviewed, submitted and are correct. 10:48:15 Procedure Complication : No complications 10:48:18 Vital chart was stopped 10:48:18 See physician's report for complete and final results. 10:48:24 Report given to Pre/Post Procedure Room. 10:48:27 Patient transfered to Pre/Post Procedure Room with Stretcher. 10:48:30 Procedure ended. 10:48:30 Full Disclosure recording stopped 10:48:38 ACC-PCI Only Patient was given prescriptions, or instructed by Beltran Clinton MD to start/continue the following medications upon discharge: Plavix 10:48:39 End room use (Document Last) Intervention Summary Intervention Notes Time ActionType Lesion and Equipment Used Action# Pressure Duration Attributes 10:45:30 Place stent Mid CX RODERICK RX 3.0 x 1 19 00:10 15 stent ([id number]) Device Usage Item Name Manufacture Quantity Catalog Number Hospital Part Current M inimal Lot# / Charge Number Stock Stock Serial# Code ACIST Syringe Acist 1 79913 909894 064327 525842 2 0 (88902) Medical Systems Inc Medline Cath Medline 1 [id number] 896789 49024 063730 5 Pack ([id number]) Bag Decanter Microtek 1 196295 64457 411890 5 () Medical Inc. DIAGNOSTIC [facility] [place] 1 697287 986001 000313 577991 3 0 WIRE .035 260cm J wire (451749) ACIST Hand Acist 1 68984 539851 602588 199101 5 Control Medical (19147) Systems Inc ACIST Manifold Acist 1 98541 118471 142999 334028 5 (46729) Medical Systems Inc Tegaderm 4 x 4 3M 1 1626W 225396 026373 534672 5 (1626W) MBrace Wrist Advanced 1 140-0250-00 162539 48243 336359 5 Support Vascular ([id number]) Dynamics SHEATH 6FR Terumo 1 [id number] 640059 892816 423496 5 Slender (80-1060) DIAGNOSTIC Terumo 1 40-1643 241995 702220 392336 5 Marcy 110cm 5 Fr catheter (032459) [place] 1 89025F 257752 843961 917836 8 [place] IVUS Catheter (18933T) CHOICE PT [place] 1 [id number] 273132 367772 786587 5 Extra Support Scientific 182cm wire ([id number]) INFLATOR Merit Merit 1 [id number] 444785 674296 271524 1 5 [facility] (RX8438) GUIDE 5FR EBU Medtronic 1 [id number] 909211 196209 506516 1 3.5 catheter ([id number]) RODERICK RX 3.0 x Medtronic 1 [id number] 249374 0200110 991754 5 [id number] 15 stent ([id number]) TR BAND Terumo 1 [id number] 552601 260973 153981 4 0 Standard ([id number]) Signature Audit [place]man Stage Time Signature Unsigned Intra-Procedure 12/15/2018 Bekah Echols 10:53:50 AM RT(R) Signatures Monitor : Bekah Echols RT Signature : Date : Time : [facility] [address] [place] [address]
[2018-12-15 08:17] VITALS: Ht 165.1 cm; Wt 80.0 kg
[2018-12-15] MEDS ORDERED: BAYER CHEWABLE81 MG PO (08:22)
[2018-12-15 08:56] LABS: BASOPHILS 0.2 % (0-2); EOSINOPHILS 1.3 % (0-7); HEMATOCRIT 44.2 % (42.0-54.0); HEMOGLOBIN 15.4 g/dL (13.5-17.5); IMMATURE GRANULOCYTES 0.2 % (0-5); LYMPHOCYTES 14.6 % (15-50); MCH 31.6 pg (26.0-34.0); MCHC 34.8 g/dL (31.0-37.0); MCV 90.8 fL (80.0-100.0); MEAN PLATELET VOLUME 10.3 fL (7.4-10.4); MONOCYTES 6.7 % (2-11); PLATELET COUNT 213 10x3/uL (130-400); RBC 4.87 10x6/uL (4.20-6.10); RDW 13.3 % (11.5-14.5)
[2018-12-15 09:08] LABS: ALBUMIN 3.6 g/dL (3.4-5.0); ALKALINE PHOSPHATASE 62 U/L (46-116); ALT (SGPT) 46 U/L (10-68); BILIRUBIN - TOTAL 0.52 mg/dL (0.2-1.3); CALC OSMOLALITY 276 mosm/kg (275-300); CALCIUM 8.4 mg/dL (8.5-10.1); CARBON DIOXIDE 24.9 mmol/L (21.0-32.0); CHLORIDE - SERUM 104 mmol/L (98-107); CREATININE - SERUM 0.8 mg/dL (0.6-1.3); GLUCOSE 122 mg/dL (74-106); PROTEIN - SERUM 7.4 g/dL (6.4-8.2); SODIUM 137 mmol/L (136-145); UREA NITROGEN 19 mg/dL (7-18); eGFR NON AFRICAN AMERICAN > 90 mL/min (90-120)
[2018-12-15 09:11] LABS: APTT 31.7 SECONDS (22.8-39.4); INR 1.01 (0.85-1.17); PROTIME 12.8 SECONDS (11.6-15.0)
[2018-12-15 09:20] LABS: CKMB 6.3 U/L (0.0-3.6); CREATINE KINASE 348 UL (21-232); MAGNESIUM - SERUM 2.2 mg/dL (1.8-2.4)
[2018-12-15 09:21] LABS: TROPONIN-I < 0.017 ng/mL (0.000-0.060)
--- NOTE | 2018-12-15 11:00 | NUR ---
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 PATIENT DENIED CHEST PAIN ON ARRIVAL. HR 67 BP 113/71
[2018-12-15 11:09] VITALS: BP 128/85
--- NOTE | 2018-12-15 11:15 | NUR ---
TR BAND TO R/WRIST IS CDI WITH NO BLEEDING OR HEMATOMA. CAP REFILL BRISK TO R/HAND INSTRUCTED PATIENT TO KEEP RUE STRAIGHT NO BENDING OR FLEXING OF WRIST. SANDWICH AND SODA TO BEDSIDE NAUSEA IS DENIED
[2018-12-15] MEDS ORDERED: PLAVIX75 MG PO (11:17)
--- NOTE | 2018-12-15 11:30 | NUR ---
DR REYES AT BEDSIDE NO NEW ORDERS. VSS AND TR BAND REAMINS CDI
--- NOTE | 2018-12-15 11:48 | NUR ---
PATIENT DENIED PAIN OR NEEDS. SITTING WITH HOB UP 30 TOLERATING SANDWICH AND SODA
--- NOTE | 2018-12-15 12:05 | NUR ---
TR BAND TO R/WRIST IS CDI WITH VSS PATIENT WATCHING TV IN ROOM CHEST PAIN IS DENIED
--- NOTE | 2018-12-15 12:27 | NUR ---
PATIENT IS RESTING QUIETLY WITH NO DISTRESS VSS AND TR BAND IS INTACT TO R/WRIST CDI
--- NOTE | 2018-12-15 13:25 | NUR ---
TR BAND REMAINS TO R/WRIST CDI NO BLEEDING NOTED. VSS AND CHEST PAIN IS DENIED
--- NOTE | 2018-12-15 13:54 | NUR ---
2 CC AIR REMOVED FROM TR BAND WITH NO BLEEDING OR HEMATOMA NOTED
--- NOTE | 2018-12-15 14:03 | NUR ---
2 CC AIR REMOVED FROM TR BAND WITH NO BLEEDING OR HEMATOMA
--- NOTE | 2018-12-15 14:15 | NUR ---
VERBAL AND WRITTEN DISCHARGE GONE OVER WITH PATIENT. 2 CC AIR REMOVED FROM TR BAND WITH NO BLEEDING NOTED
--- NOTE | 2018-12-15 14:17 | NUR ---
3 CC AIR REMOVED FROM TR BAND WITH NO BLEEDING NOTED
--- NOTE | 2018-12-15 14:28 | NUR ---
PIV REMOVED WITH DRESSING APPLIED. TR BAND TO R/WRIST IS CDI NO BLEEDING NOTED
--- NOTE | 2018-12-15 14:33 | NUR ---
2 CC AIR REMOVED FROM TR BAND WITH NO BLEEDING
--- NOTE | 2018-12-15 14:39 | OP ---
PATIENT NAME: BELTRAN GOINS MEDICAL RECORD: [id number] :62 LOCATION:[facility] ADMISSION DATE: SURGEON: BELTRAN REYES MD DATE OF OPERATION: 12/15/2018 PROCEDURES: 1. PTCA stent left circumflex. 2. Left heart catheterization. 3. Selective coronary angiography. 4. Left ventriculogram. 5. Intravascular ultrasound. INDICATION: Angina and coronary artery disease. PROCEDURE IN DETAIL: After informed consent was obtained and after detailed explanation of risks, benefits as well as alternative therapies, the patient elected to proceed with angiogram and angioplasty. The right radial area was prepped and draped in normal sterile fashion. Right radial artery was cannulated via modified Seldinger technique with placement of 6-Kinyarwanda sheath. All catheters exchanged through this sheath. FINDINGS: The left ventriculogram was performed in the standard 30-degree PITTMAN view reveals good cardiac wall motion throughout all segments. Overall ejection fraction estimated 60%. SELECTIVE CORONARY ANGIOGRAPHY: 1. Left main showed no significant angiographic disease. 2. Left anterior descending has moderate irregularities, but no flow-limiting stenosis. 3. The left circumflex has a previously placed stent with 77% in-stent restenosis in the proximal aspect of this. 4. Confirmed by intravascular ultrasound. 5. The right coronary has previously placed stent. This is widely patent with no significant restenosis. No disease elsewise throughout the RCA or its branches. PTCA STENT OF THE LEFT CIRCUMFLEX: The stent used 3.0 x 15 mm Derick taken to 19 atmospheres. Result was 0% residual stenosis. OVERALL IMPRESSION: Successful percutaneous transluminal coronary angioplasty stent of the left circumflex going from 77% in-stent restenosis to 0% residual. TRANSINT:[id number] Voice Confirmation ID: [id number] DOCUMENT ID: [id number] BELTRAN REYES MD at 1439 CC: [id number] DICTATION DATE: 12/15/18 1052 BANDER OPERATOR: 12/15/18 [id number] [place] [address]
--- NOTE | 2018-12-15 14:39 | CN ---
PATIENT NAME:BELTRAN GOINS MEDICAL RECORD: [id number] : 62 LOCATION:[facility] ADMIT DATE: ACCOUNT: [id number] CONSULTING PHYSICIAN: BELTRAN REYES MD REFERRING PHYSICIAN: PAUL BEAVER MD DATE OF CONSULTATION: 12/15/2018 DIAGNOSES: 1. Unstable angina. 2. Coronary artery disease. 3. Previous multivessel PTCA stent. 4. Leg pain compatible with claudication. 5. Hypertension. 6. Hyperlipidemia. HISTORY OF PRESENT ILLNESS: Mr. Goins presents with 2-3 weeks of increasing anginal chest discomfort. Last cardiac intervention was in May, it was RCA and left circumflex. PHYSICAL EXAMINATION: GENERAL APPEARANCE: Well-nourished, well-developed, appears stated age. Level of distress, comfortable. PSYCHIATRIC: Mental status, alert, normal affect. Orientation, oriented to time, place and person. EYES: Lids and conjunctiva, noninjected. No discharge, no pallor. ENT: Lips, teeth, gums, normal dentition. Oropharynx, no cyanosis, no pallor. NECK: Carotid arteries, bilateral normal upstroke, no bruits, no thrills. JUGULAR VEINS: No jugular venous pressure or distention. CERVICAL LYMPH NODES: Nontender, nonenlarged. THYROID: Not enlarged. Nontender. No nodules. LUNGS: Respiratory effort, unlabored. CHEST: Normal curvature. No thoracic deformity. No chest wall tenderness. Percussion, resonant. Auscultation, clear. No wheezes, no rales, no rhonchi. CARDIOVASCULAR: Precordial exam, nondisplaced. No heaves or pericardial thrills. Rate and rhythm, regular. Heart sounds, normal S1, normal S2. No S3, no gallop, no rub. Systolic murmur, not heard. Diastolic murmur, not heard. EXTREMITIES: No cyanosis, no edema. Peripheral pulses, full and equal in all extremities, except as noted. No bruits appreciated. ABDOMEN: Soft, nondistended. Normal aorta. No bruit. Nontender. No masses. Liver, nontender, no hepatomegaly. Spleen, nontender, no splenomegaly. MUSCULOSKELETAL: No joint tenderness. No joint swelling. No erythema. NEUROLOGICAL: Normal gait, normal strength, normal tone. SKIN: Warm and dry. OVERALL IMPRESSION: Anginal symptomatology with a past history of coronary artery disease and multivessel disease. We will proceed with coronary angiography. Further care depends upon the findings of the angiography. TRANSINT:[id number] Voice Confirmation ID: [id number] DOCUMENT ID: [id number] CONSULT REPORT [id number] BELTRAN GOINS, BELTRAN KAUFMAN at 1439 CC: [id number] DICTATION DATE: 12/15/18930 CORRECTIONAL CASEWORK SPECIALIST: 12/15/18 [address] [place] [address]
--- NOTE | 2018-12-15 14:41 | NUR ---
TR BAND REMOVED WITH DRESSING APPLIED. NO BLEEDING OR HEMATOMA PATIENT DENIED CHEST PAIN. LEFT VIA WC TO PARKING FOR TRANSPORT HOME NO DISTRESS
== END 2018-12-15 15:00 | disposition home or self-care (01) ==
LOC: D.CLR 08:14 → D.ER 08:14 → D.CLR 11:11 → EDSTATUS 11:14 → D.CLR 15:00
PROVIDERS: ATTEND Emergency Medicine
DX: I25.110 Atherosclerotic heart disease of native coronary artery with unstable angina pectoris (principal)

== ENCOUNTER 2019-06-06 17:49 | Inpatient (IN) | payer OTHER ==
[~2019-06-06] VITALS: Ht 165.1 cm; Wt 76.5 kg
--- NOTE | ~2019-06-06 | HEMODYNAMI ---
PATIENT:BELTRAN GOINS MEDICAL RECORD: [id number] : 62 LOCATION:[facility] D.2115 [facility]# [id number] ADMISSION DATE: 06/07/19 Generatedon:06/08/201916:00 Patient name: BELTRAN GOINS Patient #: [id number] SSN: [id number] : 1960 Date of study: 06/08/2019 Page: Of Hemodynamic Procedure Report Patient Data Patient Demographics Procedure consent was obtained First Name: BELTRAN Gender: Male Last Name: BRISEIDA : 1960 Patient #: [id number] Age: 59 year(s) Race: SSN: [id number] Additional ID: [id number] Contact details Address: [address] [place] [address] ROAD State: [place] City: [place] Zip code: [address] Past Medical History Allergies: No known allergies Admission Admission Data Admission Date: 06/07/2019 Admission Time: 18:46 Arrival Date: 06/08/2019 Arrival Time: 0:00 Admit Source: Other Insurance Payor: Private Room #: D.2115 health insurance [facility] #: [id number] Height (in.): 64.96 BSA: 1.84 (m2) Height (cm.): 165 BMI: 28.1 (kg/m2) Weight (lbs.): 168.65 Weight (kg.): 76.5 Lab Results Lab Result Date: 06/08/2019 Lab Result Time: 0:00 Biochemistry Name Units Result Min Max BUN mg/dl 13 --(--*-)-- 7 18 Creatinine mg/dl 0.8 --(-*--)-- 0.6 1.3 eGFR ml/min 90 --(*---)-- 90 120 NONAFRICAN CBC Name Units Result Min Max Hematocrit % 47.1 --(-*--)-- 42 54 Hemoglobin g/dl 15.8 --(--*-)-- 13.5 17.5 Procedure Procedure Types Cath Procedure Diagnostic Procedure LHC LHC w/Coronaries Procedure Description Procedure Date Procedure Date: 06/08/2019 Procedure Start Time: 15:43 Procedure End Time: 15:59 Procedure Staff Name Function Ana Laura Andres RT Monitor Delma Chance RT Monitor Giacomo Jimenez RT Scrub Jovita Dickinson RT Scrub Kenyatta Kumari RN Nurse Donavan Roth MD Performing Physician Procedure Data Cath Procedure Fluoroscopy Diagnostic fluoroscopy Total fluoroscopy Time: 1.1 time: 1.1 min min Diagnostic fluoroscopy Total fluoroscopy dose: 366 dose: 366 mGy mGy Contrast Material Contrast Material Type Amount (ml) Isovue 300 60 Entry Location Entry Primary Successful Side Size Upsize Upsize Entry Closure Succes sful Closure Location (Fr) 1 (Fr) 2 (Fr) Remarks Device Remarks Femoral Right 5 Fr Exoseal artery Estimated blood loss: 5 ml Diagnostic catheters Device Type Used For End Catheter Placement MULTIPACK JL 4.0 5Fr Procedure catheter MULTIPACK 3DRC 5Fr Procedure catheter MULTIPACK Pigtail 5 Fr Procedure catheter Procedure Complications No complications Procedure Medications Medication Administration Route Dosage Oxygen etCO2 Nasal cannula 2 l/min Lidocaine 2% added to field 20 Heparin Flush Bag added to field 2 bags (1000units/500ml NS) 0.9% NaCl I.V. 100 ml/hr Versed I.V. 2 mg Fentanyl I.V. 50 mcg Versed I.V. 2 mg Fentanyl I.V. 50 mcg Radial Cocktail added to field 1 syringe (Verapamil 2mg/Nitro 400mcg/Heparin 1500units) Versed I.V. 2 mg Hemodynamics Rest BSA: 1.84 (m2) HGB: 15.8 (g/dl) O2 Consumption: Estimated: 229.11 (ml/min) O2 Co nsumption indexed: Estimated:124.52 (ml/min/m) Heart Rate: 87 (bpm) Pressure Samples Time Site Value (mmHg) Purpose Heart Use Rate(bpm) 15:52 LV 93/4,4 Snapshot 101 15:53 AO 99/59(75) Pullback 90 15:53 LV 100/10,16 Pullback 90 Gradients Valve Time Site 1 Site 2 Mean SEP/DFP Peak To Heart Use (mmHg) (sec/min) Peak Rate (mmHg) (bpm) Aortic 15:53 LV AO 4 21 1 90 100/10,16 99/59(75) Calculations Valve P-P Mean Valve Index Valve Source Name Gradient Area Flow (cm2) Aortic 1 4 1 4 Snapshots Pre Cath Intra NCS Post Cath Vital Signs Time Heart Resp SPO2 etCO2 NIBP Rhythm Pain Sedation Rate (ipm) (%) (mmHg) (mmHg) Status Level (bpm) 15:27:44 83 20 99 0 122/83(98) NSR 0 (11) 10(A) , No pain 15:31:51 87 17 100 35.8 123/80(96) NSR 0 (11) 10(A) , No pain 15:36:01 87 11 100 35.1 111/77(88) NSR 0 (11) 10(A) , No pain 15:40:09 87 17 95 29.8 109/67(87) NSR 0 (11) 10(A) , No pain 15:44:17 82 12 93 36.6 97/61(87) NSR 0 (11) 9(A) , No pain 15:48:19 80 15 96 35.9 111/69(95) NSR 0 (11) 9(A) , No pain 15:52:27 80 13 93 36.6 106/67(83) NSR 0 (11) 10(A) , No pain 15:56:30 81 14 96 34.4 105/71(84) NSR 0 (11) 10(A) , No pain Medications Time Medication Route Dose Verified Delivered Reason Notes Effectiveness by by 15:39:09 Oxygen etCO2 2 l/min Donavan You used for Nasal St Erwin Kumari RN procedure cannula 15:39:16 Lidocaine 2% added 20ml Donavan Go for local to vial [facility] anesthetic field MD KAUFMAN 15:39:24 Heparin Flush added 2 bags Donavan Go used for Bag to [facility] procedure (1000units/500ml field MD KAUFMAN NS) 15:39:45 0.9% NaCl I.V. 100 Donavan You Per ml/hr St Erwin Kumari RN physician 15:39:53 Radial Cocktail added 1 Donavan Go for not (Verapamil to syringe [facility] vasodilation used, 2mg/Nitro field MD KAUFMAN femoral 400mcg/Heparin access 1500units) obtained 15:41:35 Versed I.V. 2 mg Donavan You for sedation St Erwin Kumari RN, MD 15:41:42 Fentanyl I.V. 50 mcg Donavan You for sedation St Erwin Kumari RN, MD 15:44:03 Versed I.V. 2 mg Donavan You for sedation St Erwin Kumari RN, MD 15:44:07 Fentanyl I.V. 50 mcg Donavan You for sedation St Erwin Kumari RN, MD 15:50:44 Versed I.V. 2 mg Donavan You for sedation St Erwin Kumari RN, MD Procedure Log Time Note 15:00:36 Informed consent obtained and on chart 15:04:41 Arrival Date: 06/08/2019 12:00:00 AM 15:04:50 Insurance Payor : Private health insurance 15:05:18 Patient Height : 64.96 inches 15:05:23 Patient Weight : 168.65 lbs 15:05:30 Admit Source: Other 15:08:32 Lab Result : eGFR NONAFRICAN 90 ml/min 15:08:32 Lab Result : Hemoglobin 15.8 g/dl 15:08:32 Lab Result : BUN 13 mg/dl 15:08:32 Lab Result : Creatinine 0.8 mg/dl 15:08:32 Lab Result : Hematocrit 47.1 % 15:08:42 Diagnostic Cath Status : Elective 15:10:07 Procedure Status Elective Heart Cath (OP). 15:10:10 Kenyatta Kumari RN sent for patient. Start room use. 15:10:15 Time tracking: Regular hours (M-F 7:00 - 5:00) 15:10:21 Plan of Care:Hemodynamics will remain stable., Cardiac rhythm will remain stable., Comfort level will be maintained., Respiratory function will remain adequate., Patient/ family verbilizes understanding of procedure., Procedure tolerated without complication., Recovers from procedure without complications.. 15:22:39 Patient received from Med II to CCL 1 Alert and oriented. Tansferred to table in Supine position. 15:22:40 Warm blankets applied, and asim hugger turned on for patient comfort. 15:22:41 Correct patient and procedure confirmed by team. 15:22:41 ECG and BP/O2 sat monitors applied to patient. 15:22:46 Vital chart was started 15:28:44 Patient allergic to No known allergies 15:28:52 Baseline sample Acquired. 15:28:55 Rhythm: sinus rhythm 15:28:57 Full Disclosure recording started 15:29:05 H&P Date Dictated: 06/08/2019 New H&P dictated by physician.. 15:29:07 Pre-procedure instructions explained to patient. 15:29:07 Pre-op teaching completed and patient verbalized understanding. 15:29:09 Family unavailable. 15:29:10 Patient NPO since Midnight. 15:30:52 Is the patient allergic to Iodine/contrast media? No. 15:30:57 Is patient on blood thinner?No 15:31:10 Patient diabetic? No. 15:31:21 Previous problem with sedation/anesthesia? No ? 15:31:22 Snore? Yes 15:31:25 Sleep apnea? No 15:31:27 Deviated septum? No 15:31:29 Opens mouth fully? Yes 15:31:30 Sticks out tongue? Yes 15:31:43 Airway obstruction? No ? 15:31:50 Dentures? No ? 15:31:55 Pre procedure: right dorsailis pedis pulse 2+ Normal; easily identifiable; not easily obliterated 15:32:00 Modified Andi's test Radial < 7 seconds 15:32:06 Patient pain scale 0/10 ?. 15:32:15 IV patent on arrival in left forearm with 0.9% NaCl at [facility]. 15:32:43 Right Radial & Right Groin area was prepped with chlora-prep and draped in sterile fashion 15:32:45 Alarms reviewed by R. N. 15:32:46 Sharps counted by scrub and verified by R.N. 15:33:07 Use device set Radial Dx or PCI 15:33:15 Medline Cath Pack ([id number]) opened to sterile field. 15:33:16 ACIST Syringe (61547) opened to sterile field. 15:33:17 Bag Decanter (2002S) opened to sterile field. 15:33:18 ACIST Hand Control (02673) opened to sterile field. 15:33:19 ACIST Manifold (33737) opened to sterile field. 15:33:26 MBrace Wrist Support ([id number]) opened to sterile field. 15:33:40 EMERALD Guide Wire (208-328) opened to sterile field. 15:33:41 SHEATH 6FR RAIN (4013114) opened to sterile field. 15:39:09 Oxygen 2 l/min etCO2 Nasal cannula was administered by Kenyatta Kumari RN; used for procedure; Verbal order read back and verified. 15:39:16 Lidocaine 2% 20ml vial added to field was administered by Donavan Roth MD; for local anesthetic; Verbal order read back and verified. 15:39:24 Heparin Flush Bag (1000units/500ml NS) 2 bags added to field was administered by Donavan Roth MD; used for procedure; Verbal order read back and verified. 15:39:45 0.9% NaCl 100 ml/hr I.V. was administered by Kenyatta Kumari RN; Per physician; Verbal order read back and verified. 15:39:53 Radial Cocktail (Verapamil 2mg/Nitro 400mcg/Heparin 1500units) 1 syringe added to field was administered by Donavan Roth MD; for vasodilation; not used, femoral access obtained Verbal order read back and verified. 15:40:32 --------ALL STOP TIME OUT------ 15:40:35 Final Timeout: patient, procedure, and site verified with staff and physician. All members of the team are in agreement. 15:41:35 Versed 2 mg I.V. was administered by Kenyatta Kumari RN; for sedation; Verbal order read back and verified. 15:41:42 Fentanyl 50 mcg I.V. was administered by Kenyatta Kumari RN; for sedation; Verbal order read back and verified. 15:42:18 Right Radial & Right Groin site verified by team. 15:42:21 Fire Safety Assessment: B--The operative or invasive procedure is being performed above the xiphoid process or in the oropharynx. 15:42:29 Physical assessment completed. ASA score P 2 - A patient with mild systemic disease as per Donavan Roth MD. 15:42:32 1) 90+ Normal kidney functon but urine findings or structural abnormalities or genetic trait point to kidney disease. 15:42:34 Maximum allowable contrast dose (3.7 X eGFR X 0.75)250 ml. 15:42:38 Sedation plan: IV Moderate Sedation Medication:Versed, Fentanyl 15:42:43 Zero performed for pressure channel P1 15:42:45 Procedure started. 15:43:15 Local anesthetic to right radial artery with Lidocaine 2% by Donavan Roth MD.INITIAL ACCESS ONLY 15:43:40 Zero performed for pressure channel P1 15:43:58 Zero performed for pressure channel P1 15:44:03 Versed 2 mg I.V. was administered by Kenyatta Kumari RN; for sedation; Verbal order read back and verified. 15:44:07 Fentanyl 50 mcg I.V. was administered by Kenyatta Kumari RN; for sedation; Verbal order read back and verified. 15:45:38 Unable to advance radial wire proceed groin. 15:45:56 Use device set Multipack Set 15:46:01 DIAGNOSTIC Multipack 5Fr catheter set ([id number]) opened to sterile field. 15:46:11 Local anesthetic to right femoral artery with Lidocaine 2% by Donavan Roth MD.ADDITIONAL ACCESS 15:47:21 A 5 Fr sheath was inserted into the Right Femoral artery 15:48:28 A MULTIPACK JL 4.0 5Fr catheter was advanced over the wire and used for Procedure. 15:50:06 LCA angiography performed. 15:50:07 Catheter removed. 15:50:17 A MULTIPACK 3DRC 5Fr catheter was advanced over the wire and used for Procedure. 15:50:44 Versed 2 mg I.V. was administered by Kenyatta Kumari RN; for sedation; Verbal order read back and verified. 15:51:16 RCA angiography performed. 15:51:19 Catheter removed. 15:51:39 A MULTIPACK Pigtail 5 Fr catheter was advanced over the wire and used for Procedure. 15:52:06 LV gram done using PITTMAN 15:52:13 Injector settings: Ml/sec: 10, Volume: 20, 15:53:16 Catheter removed. 15:53:45 EXOSEAL 5Fr (EX500) opened to sterile field. 15:54:13 Sheath removed intact; hemostasis achieved with Exoseal to the Right Femoral artery. 15:54:16 Procedure ended.(Physican Out) 15:54:43 Fluoroscopy time 01.10 minutes. 15:54:50 Fluoroscopy dose: 366 mGy 15:54:50 Flurop Dose total: 366 15:55:15 Dose Area Product 75934 mGy/cm. 15:55:21 Contrast amount:Isovue 300 60ml. 15:55:23 Maximum allowable dose exceeded? No. 15:55:25 Sharps counted by scrub and verified by R.N. 15:55:51 Post-op/insertion site Right Femoral artery dressed using a 4 x 4 and Tegaderm. 15:55:55 Post Procedure Pulses reassessed and unchanged 15:56:06 Post procedure: right dorsailis pedis pulse 2+ Normal; easily identifiable; not easily obliterated. 15:56:20 Post-procedure physical assessment completed. ASA score P 2 - A patient with mild systemic disease as per Donavan Roth MD. 15:56:26 Post procedure rhythm: unchanged. 15:56:31 Estimated blood loss: 5 ml 15:56:33 Post procedure instruction explained to patient.Patient verbalizes understanding. 15:56:35 Patient needs reinforcement of post procedure teaching. 15:58:38 Procedure and supply charges have been captured, reviewed, submitted and are correct. 15:59:04 Procedure Complication : No complications 15:59:07 Vital chart was stopped 15:59:09 Operative report dictated upon procedure completion. 15:59:10 See physician's report for complete and final results. 15:59:13 Report given to Med II. 15:59:18 Patient transfered to Med II with Bed. 15:59:24 Procedure ended. 15:59:24 Full Disclosure recording stopped 15:59:35 End room use (Document Last) 15:59:59 End room use (Document Last) 16:00:21 End room use (Document Last) Device Usage Item Name Manufacture Quantity Catalog Hospital Part Current Minima l Lot# / Number Charge Number Stock Stock Serial# Code Medline Medline 1 [id number] 259964 13144 794801 5 Cath Pack ([id number]) ACIST Acist 1 98142 448924 969634 332199 20 Syringe Medical (63341) Systems Inc Bag Microtek 1 2001S 889794 59657 883865 5 Decanter Medical Inc. () ACIST Hand Acist 1 04275 348881 736548 636693 5 Control Medical (64894) Systems Inc ACIST Acist 1 82204 059665 323599 362894 5 Manifold Medical (50586) Systems Inc MBrace Advanced 1 140-0250-00 256923 64675 861504 5 Wrist Vascular Support Dynamics ([id number]) EMERALD Cardinal 1 502-455 682327 046847 471229 5 Guide Wire Health (379-915) SHEATH 6FR Cardinal 1 5304055 408689 3838259 652691 5 [facility] (7821592) DIAGNOSTIC Cardinal 1 KT2287 197660 57820 245005 30 Multipack Health 5Fr catheter set (NH8666) MULTIPACK Cardinal 1 978976 5 JL 4.0 5Fr Health catheter MULTIPACK Cardinal 1 478584 5 3DRC 5Fr Health catheter MULTIPACK Cardinal 1 396223 5 Pigtail 5 Health Fr catheter EXOSEAL 5Fr Cardinal 1 EX500 900524 194262 246556 10 (EX500) Health Signature Audit [place] Stage Time Signature Unsigned Intra-Procedure 06/08/2019 Delma Chance 3:59:59 PM RT(R) Intra-Procedure 06/08/2019 Kenyatta Kumari RN 4:00:21 PM Intra-Procedure 06/08/2019 Donavan Swenson 4:00:54 PM Erwin KAUFMAN [facility] [address] [place] [address]
[~2019-06-06 17:49] MED LIST changes: +BAYER CHEWABLE81 MG PO
[2019-06-06 18:19] VITALS: BP 137/81
--- NOTE | 2019-06-06 18:35 | NUR ---
BLOOD DRAWN WITH IV START ET SENT TO LAB.
[2019-06-06 18:39] LABS: BASOPHILS 0.1 % (0-2); EOSINOPHILS 1.6 % (0-7); HEMATOCRIT 44.4 % (42.0-54.0); HEMOGLOBIN 15.2 g/dL (13.5-17.5); IMMATURE GRANULOCYTES 0.1 % (0-5); LYMPHOCYTES 19.6 % (15-50); MCHC 34.2 g/dL (31.0-37.0); MCV 93.5 fL (80.0-100.0); MONOCYTES 11.2 % (2-11); NEUTROPHILS 67.4 % (40-80); PLATELET COUNT 234 10x3/uL (130-400); RBC 4.75 10x6/uL (4.20-6.10); RDW 12.8 % (11.5-14.5); WBC 7.9 10x3/uL (4.8-10.8)
[2019-06-06 18:48] LABS: APTT 29.7 SECONDS (22.8-39.4); INR 0.94 (0.85-1.17); PROTIME 12.1 SECONDS (11.6-15.0)
[2019-06-06 19:01] LABS: ALBUMIN 3.6 g/dL (3.4-5.0); ALKALINE PHOSPHATASE 63 U/L (46-116); ALT (SGPT) 38 U/L (10-68); BILIRUBIN - TOTAL 0.31 mg/dL (0.2-1.3); CALC OSMOLALITY 282 mosm/kg (275-300); CALCIUM 8.2 mg/dL (8.5-10.1); CARBON DIOXIDE 31.4 mmol/L (21.0-32.0); CHLORIDE - SERUM 104 mmol/L (98-107); CREATININE - SERUM 1.1 mg/dL (0.6-1.3); GLUCOSE 109 mg/dL (74-106); POTASSIUM - SERUM 4.2 mmol/L (3.5-5.1); SODIUM 141 mmol/L (136-145); UREA NITROGEN 15 mg/dL (7-18); eGFR NON AFRICAN AMERICAN 73 mL/min (90-120)
[2019-06-06 19:16] LABS: CKMB 4.8 U/L (0.0-3.6); CREATINE KINASE 257 UL (21-232); MAGNESIUM - SERUM 2.2 mg/dL (1.8-2.4); TROPONIN-I < 0.017 ng/mL (0.000-0.060)
[2019-06-06] MEDS ORDERED: TOPROL XL25 MG PO (22:16)
[2019-06-06 22:30] VITALS: BP 124/95; Ht 165.1 cm; Wt 76.5 kg
[2019-06-07 00:30] VITALS: BP 102/68
[2019-06-07 04:30] VITALS: BP 105/68
[2019-06-07 05:16] LABS: BASOPHILS 0.3 % (0-2); EOSINOPHILS 2.5 % (0-7); HEMATOCRIT 44.2 % (42.0-54.0); HEMOGLOBIN 14.7 g/dL (13.5-17.5); IMMATURE GRANULOCYTES 0.2 % (0-5); LYMPHOCYTES 26.1 % (15-50); MCH 31.1 pg (26.0-34.0); MCHC 33.3 g/dL (31.0-37.0); MCV 93.6 fL (80.0-100.0); MEAN PLATELET VOLUME 10.2 fL (7.4-10.4); NEUTROPHILS 61.9 % (40-80); PLATELET COUNT 214 10x3/uL (130-400); RBC 4.72 10x6/uL (4.20-6.10); WBC 6.3 10x3/uL (4.8-10.8)
[2019-06-07 05:59] LABS: ALBUMIN 3.2 g/dL (3.4-5.0); ALKALINE PHOSPHATASE 55 U/L (46-116); ALT (SGPT) 33 U/L (10-68); BILIRUBIN - TOTAL 0.43 mg/dL (0.2-1.3); CALC OSMOLALITY 285 mosm/kg (275-300); CALCIUM 7.9 mg/dL (8.5-10.1); CHLORIDE - SERUM 107 mmol/L (98-107); CKMB 3.2 U/L (0.0-3.6); CREATINE KINASE 170 UL (21-232); GLUCOSE 102 mg/dL (74-106); MAGNESIUM - SERUM 2.1 mg/dL (1.8-2.4); PHOSPHOROUS 3.4 mg/dL (2.5-4.9); POTASSIUM - SERUM 4.4 mmol/L (3.5-5.1); PROTEIN - SERUM 6.4 g/dL (6.4-8.2); SODIUM 143 mmol/L (136-145); UREA NITROGEN 16 mg/dL (7-18)
[2019-06-07 06:18] LABS: CREATININE - SERUM 0.8 mg/dL (0.6-1.3); TROPONIN-I < 0.017 ng/mL (0.000-0.060); eGFR NON AFRICAN AMERICAN > 90 mL/min (90-120)
--- NOTE | 2019-06-07 08:36 | NUR ---
LEAVING FOR NM STRESS TEST BY W/C. WILL CONT. PLAN OF CARE.
--- NOTE | 2019-06-07 11:59 | NUR ---
BACK FROM STRESS TEST. DIET RESUMED.
[2019-06-07 12:56] LABS: CKMB 2.6 U/L (0.0-3.6); CREATINE KINASE 148 UL (21-232); TROPONIN-I < 0.017 ng/mL (0.000-0.060)
[2019-06-07 13:48] VITALS: BP 150/56
[2019-06-07 16:10] VITALS: BP 129/75
--- NOTE | 2019-06-07 17:43 | NUR ---
UNABLE TO DC FEMSTOP AT THIS TIME DUE BLEEDING. LEAVING FOR DIALYSIS BY BED. WILL CONT. TO MONITOR.
--- NOTE | 2019-06-07 19:04 | NUR ---
RECEIVED BEDSIDE REPORT. PATIENT IS ALERT AND ORIENTED, RESTING COMFORTABLY IN BED. RESPIRATIONS ARE EVEN AND UNLABORED. NO S/S OF DISTRESS. NO C/O PAIN. NEEDS MET. CALL LIGHT WITHIN REACH. WILL CPOC.
[2019-06-07 20:00] VITALS: BP 108/68
[2019-06-08] VITALS: BP 102/58
[2019-06-08 04:00] VITALS: BP 98/56
[2019-06-08 04:03] LABS: BASOPHILS 0.4 % (0-2); EOSINOPHILS 2.9 % (0-7); HEMATOCRIT 47.1 % (42.0-54.0); HEMOGLOBIN 15.8 g/dL (13.5-17.5); IMMATURE GRANULOCYTES 0.1 % (0-5); LYMPHOCYTES 22.2 % (15-50); MCH 31.5 pg (26.0-34.0); MCHC 33.5 g/dL (31.0-37.0); MEAN PLATELET VOLUME 9.7 fL (7.4-10.4); MONOCYTES 10.3 % (2-11); NEUTROPHILS 64.1 % (40-80); PLATELET COUNT 206 10x3/uL (130-400); RBC 5.01 10x6/uL (4.20-6.10); RDW 13.1 % (11.5-14.5); WBC 6.9 10x3/uL (4.8-10.8)
[2019-06-08 04:11] LABS: CALC OSMOLALITY 284 mosm/kg (275-300); CALCIUM 8.3 mg/dL (8.5-10.1); CARBON DIOXIDE 29.2 mmol/L (21.0-32.0); CHLORIDE - SERUM 106 mmol/L (98-107); CREATININE - SERUM 0.8 mg/dL (0.6-1.3); GLUCOSE 99 mg/dL (74-106); MAGNESIUM - SERUM 2.3 mg/dL (1.8-2.4); PHOSPHOROUS 3.2 mg/dL (2.5-4.9); POTASSIUM - SERUM 4.5 mmol/L (3.5-5.1); SODIUM 143 mmol/L (136-145); UREA NITROGEN 13 mg/dL (7-18); eGFR NON AFRICAN AMERICAN > 90 mL/min (90-120)
[2019-06-08 08:39] VITALS: BP 126/77
[2019-06-08 13:16] VITALS: BP 108/65
--- NOTE | 2019-06-08 15:00 | NUR ---
PRE-OPS GIVEN. TO DOG DAY CARE ATTENDANT BY BED.
--- NOTE | 2019-06-08 18:01 | NUR ---
BED REST UP. GROIN STABLE.
[2019-06-08 18:11] VITALS: BP 98/65
[2019-06-08 20:00] VITALS: BP 102/65
[2019-06-09] VITALS: BP 103/66
[2019-06-09 04:00] VITALS: BP 98/60
[2019-06-09 05:49] LABS: BASOPHILS 0.3 % (0-2); EOSINOPHILS 2.2 % (0-7); HEMOGLOBIN 16.3 g/dL (13.5-17.5); IMMATURE GRANULOCYTES 0.1 % (0-5); LYMPHOCYTES 19.4 % (15-50); MCH 31.9 pg (26.0-34.0); MCV 93.9 fL (80.0-100.0); MEAN PLATELET VOLUME 10.2 fL (7.4-10.4); MONOCYTES 9.4 % (2-11); NEUTROPHILS 68.6 % (40-80); PLATELET COUNT 206 10x3/uL (130-400); RBC 5.11 10x6/uL (4.20-6.10); WBC 7.3 10x3/uL (4.8-10.8)
[2019-06-09 06:07] LABS: CALC OSMOLALITY 282 mosm/kg (275-300); CALCIUM 8.3 mg/dL (8.5-10.1); CARBON DIOXIDE 28.8 mmol/L (21.0-32.0); CHLORIDE - SERUM 105 mmol/L (98-107); CREATININE - SERUM 0.8 mg/dL (0.6-1.3); GLUCOSE 96 mg/dL (74-106); POTASSIUM - SERUM 4.7 mmol/L (3.5-5.1); SODIUM 141 mmol/L (136-145); eGFR NON AFRICAN AMERICAN > 90 mL/min (90-120)
[2019-06-09 06:22] LABS: UREA NITROGEN 18 mg/dL (7-18)
--- NOTE | 2019-06-09 07:15 | NUR ---
RECEIVED PT IN BED AAOX4 RESP UNLABORED SKIN W/D COLOR WNL DENIES ANY NEEDS OR DISCOMFORT AT THIS TIME
--- NOTE | 2019-06-09 10:14 | OP ---
PATIENT NAME: BELTRAN GOINS MEDICAL RECORD: [id number] :62 LOCATION:D.M2 D.2115 ADMISSION DATE:06/07/19 SURGEON: PARVEEN BABCOCK MD DATE OF OPERATION: 06/08/2019 PROCEDURES: Left heart catheterization, selective coronary angiography, and right femoral artery approach. CATHETERS: A 5-Faroese sheath, 5/4 right and left Kierra, 5/4 pig. The procedure was well tolerated. The patient was returned to the duran, sheath removed. ExoSeal device placed. FINDINGS: Left ventriculography with 30-degree PITTMAN view, normal wall motion and normal systolic function. CORONARY ANATOMY: LEFT MAIN: Left main is free of disease. LAD: Free of disease in the diagonal system. CIRCUMFLEX: Area of previous stent is widely patent. No evidence of restenosis, acute stent thrombosis. No progression of little river disease. RIGHT CORONARY ARTERY: Somewhat of a codominant system. Right coronary has previously placed stent, is widely patent without evidence of restenosis. No progression of little river disease. IMPRESSION: Patent stents. No progression of little river disease, normal systolic function. TRANSINT:[id number] Voice Confirmation ID: [id number] DOCUMENT ID: [id number] PARVEEN BABCOCK MD at 1014 CC: [id number] DICTATION DATE: 06/08/19 1600 COIN BOX COLLECTOR: 06/08/19 2310 ADM IN [facility] [address] [place] [address]
[2019-06-09 10:38] VITALS: BP 155/87
[2019-06-09 13:50] VITALS: BP 133/91
--- NOTE | 2019-06-09 14:20 | NUR ---
REVIEWED DISCHARGE INSTRUCTIONS WITH PT STATES UNDERSTANDING COPY GIVEN DCD SALINE LOCK TO LFA WITH IV CATHETER INTACT SITE FREE OF REDNESS OR EDEMA PT DISCHARGED HOME LEFT UNIT VIA W/C IN STABLE CONDITION WITH ALL PERSONAL BELONGINGS
--- NOTE | 2019-06-09 16:15 | MORECARE ---
CASE MANAGEMENT DISCHARGE SUMMARY PATIENT: BELTRAN GOINS UNIT: [id number] ADM DATE: 06/07/19 AGE: 59 : 62 SEX: M ROOM/BED: D.2115 AUTHOR: AMBROCIO ROBLERO PHYSICIAN: REFERRING PHYSICIAN: IRASEMA VELA MD DATE OF SERVICE: 06/09/19 Discharge Plan Patient Name: BELTRAN GOINS [facility] [facility] 1960 Planned Disposition: Home Anticipated Discharge Date: 06/09/19 Discharge Date: 06/09/2019 Expected LOS: 2 Initial Reviewer: [email or web address] Initial Review Date: 06/09/2019 Generated: 06/09/19 5:14 pm DCPIA - Discharge Planning Initial Assessment Updated by [email or web address]: Juan Manuel Ny on 06/09/19 4:14 pm * Is the patient Alert and Oriented? Yes * How many steps to enter\exit or inside your home? * PCP AT [facility] * Pharmacy [facility] IN [place] * Preadmission Environment Home with Family * ADLs Independent * Equipment None * Other Equipment NO MEDICAL EQUIPMENT PROVIDER PREFERENCE * List name and contact numbers for known caregivers / representatives who currently or will assist patient after discharge: AIDEE GOINS, MOTHER, * Verbal permission to speak to the caregivers and representatives has been obtained from the patient. N/A * Community resources currently utilized None * Please name any agencies selected above. NONE * Additional services required to return to the preadmission environment? No * Can the patient safely return to the preadmission environment? Yes * Has this patient been hospitalized within the prior 30 days at any hospital? No Patient Name: BELTRAN GOINS Page 47710 at 1615 All edits/amendments must be made on the electronic document DICTATION DATE: 06/09/191613 GAS PROCESSING PLANT OPERATOR: JORGE 06/09/191613 RPT#: [id number] DC DATE:06/09/19 STATUS: DIS IN [facility] [address] [place] [address] END OF REPORT
--- NOTE | 2019-06-09 16:23 | MORECARE ---
CASE MANAGEMENT DISCHARGE SUMMARY PATIENT: BELTRAN GOINS UNIT: [id number] ADM DATE: 06/07/19 AGE: 59 : 62 SEX: M ROOM/BED: D.4395 AUTHOR: ANNIKA,DOC PHYSICIAN: REFERRING PHYSICIAN: IRASEMA VELA MD DATE OF SERVICE: 06/09/19 Discharge Plan Patient Name: BELTRAN GOINS Facility: [facility]:[place] : 1960 Planned Disposition: Home Anticipated Discharge Date: 06/09/19 Discharge Date: 06/09/2019 Expected LOS: 2 Initial Reviewer: [email or web address] Initial Review Date: 06/09/2019 Generated: 06/09/19 5:22 pm Comments DCP- Discharge Planning Updated by [email or web address]: Juan Manuel Ny on 06/09/19 3:[address] Patient Name: BELTRAN GOINS Admission Status: ER Accout number: [id number] Admission Date: 06-07-2019 : 1960 Admission Diagnosis: Attending: IRASEMA VELA Current LOS: 2 Anticipated DC Date: 06-09-2019 Planned Disposition: Home Primary Insurance: [employer]ED MEDICAID Discharge Planning Comments: CM MET WITH PT IN ROOM TO DISCUSS DISCHARGE PLANNING AND NEEDS. PT REPORTS LIVING AT HOME INDEPENDENTLY WITH HIS FRIEND. PT HAS NO MEDICAL EQUIPMENT AND NO OUTSIDE SERVICES ASSISTING IN THE HOME. CM DISCUSSED AVAILABILITY OF HOME HEALTH, REHAB SERVICES AND MEDICAL EQUIPMENT. PT DENIES DISCHARGE NEEDS, REPORTS HIS BROTHER WILL PICK HIM UP FOR DISCHARGE HOME. ART OBJECTS REPAIRER NURSE NOTIFIED. Fruit Culler: Juan Manuel Ny DCPIA - Discharge Planning Initial Assessment Updated by [email or web address]: Juan Manuel Ny on 06/09/19 4:14 pm * Is the patient Alert and Oriented? Yes * How many steps to enter\exit or inside your home? * PCP AT [facility] * Pharmacy [facility] IN [place] * Preadmission Environment Home with Family * ADLs Independent * Equipment None * Other Equipment NO MEDICAL EQUIPMENT PROVIDER PREFERENCE * List name and contact numbers for known caregivers / representatives who currently or will assist patient after discharge: AIDEE GOINS, MOTHER, * Verbal permission to speak to the caregivers and representatives has been obtained from the patient. N/A * Community resources currently utilized None * Please name any agencies selected above. NONE * Additional services required to return to the preadmission environment? No * Can the patient safely return to the preadmission environment? Yes * Has this patient been hospitalized within the prior 30 days at any hospital? No Last DP export: 06/09/19 3:15 Patient Name: BELTRAN GOINS Page [phone] at 1623 All edits/amendments must be made on the electronic document DICTATION DATE: 06/09/191621 DISEASE INTERVENTION SPECIALIST: JORGE 06/09/191621 RPT#: [id number] DC DATE:06/09/19 STATUS: DIS IN [facility] [address] [place] [address] END OF REPORT
== END 2019-06-09 14:20 | disposition home or self-care (01) | DRG 287 ==
LOC: D.ER 17:49 → D.M2 20:35 → OBSVTIME 20:35 → D.M2 06-07 18:46
PROVIDERS: Emergency Medicine; Family Medicine; Internal Medicine Cardiovascular Disease; ADMIT Internal Medicine Nephrology; ATTEND Internal Medicine Nephrology
PROC: B2151ZZ Fluoroscopy of Left Heart using Low Osmolar Contrast (ICD-10-PCS; 2019-06-08)
PROC: 4A023N7 Measurement of Cardiac Sampling and Pressure, Left Heart, Percutaneous Approach (ICD-10-PCS; 2019-06-08)
PROC: B2111ZZ Fluoroscopy of Multiple Coronary Arteries using Low Osmolar Contrast (ICD-10-PCS; principal; 2019-06-08 14:30)
DX: I25.119 Atherosclerotic heart disease of native coronary artery with unspecified angina pectoris (principal); I10 Essential (primary) hypertension; E78.5 Hyperlipidemia, unspecified; K21.9 Gastro-esophageal reflux disease without esophagitis; R94.39 Abnormal result of other cardiovascular function study